=== PATIENT | female | born 1935 | race Caucasian/White ===

== ENCOUNTER → 2016-07-10 | Outpatient (CLI) | payer OTHER ==
[~2016-07-10] MED LIST: ALBUTEROL SULF 2.5 MG/0.5ML(0.5%) NEB SOLN ONE; DIGO0.1262; DIGO0.1262 OR; FURO20TA; FURO20TA3 OR; GLYB5TAB8; GLYB5TAB8 OR; HYDRCRY2; METF-312; METF-316 OR; NITR0.4S31 SL; NITROSTAT; NOR5T PO; SIMV10TA84; SIMV10TA84 OR; SITA100T7; SITA25TA3 OR; WARF1TAB; WARF5TAB71 OR
== END | disposition home or self-care (01) ==
LOC: RT 08:55
PROVIDERS: ATTEND Internal Medicine Pulmonary Disease
DX: J84.9 Interstitial pulmonary disease, unspecified (principal); I07.1 Rheumatic tricuspid insufficiency; I65.29 Occlusion and stenosis of unspecified carotid artery; I34.2 Nonrheumatic mitral (valve) stenosis; I35.0 Nonrheumatic aortic (valve) stenosis
CPT/HCPCS: 94060; 94620

== ENCOUNTER → 2016-08-30 | Outpatient (CLI) | payer OTHER ==
[~2016-08-30] MED LIST changes: -ALBUTEROL SULF 2.5 MG/0.5ML(0.5%) NEB SOLN ONE
[2016-08-30 10:14] LABS: Basophils # (auto) 0.1 uL; Basophils % (auto) 1.2 % (0.0-2.0); Eosinophils # (auto) 0.2 uL; Eosinophils % (auto) 2.7 % (0.0-7.0); Hematocrit 40.1 % (36.0-46.0); Hemoglobin 13.1 g/dL (12.2-16.2); Lymphocytes # (auto) 1.5 uL; Lymphocytes % (auto) 21.8 % (10.0-50.0); Mean Corpuscular Hemoglobin 27.5 pg (28.0-32.0); Mean Corpuscular Hgb Conc. 32.5 g/dL (32.0-36.0); Mean Corpuscular Volume 84.3 fL (80.0-100.0); Mean Platelet Volume 8.5 fL (7.4-10.4); Monocytes # (auto) 0.6 uL; Monocytes % (auto) 8.6 % (0.0-12.0); Neutrophils # (auto) 4.5 uL; Neutrophils % (auto) 65.7 % (37.0-80.0); Platelet Count (auto) 268 10^3/uL (140-450); Red Cell Distribution Width 15.2 % (11.6-16.0); White Blood Cell 6.8 10^3/uL (4.4-10.8)
[2016-08-30 10:26] LABS: Partial Thromboplastin Time 34.9 sec (22.64-33.71)
[2016-08-30 10:47] LABS: Albumin 3.5 g/dL (3.4-5.0); BUN/Creatinine Ratio 24.7; Bilirubin, Total 0.6 mg/dL (0.2-1.0); Calcium 9.2 mg/dL (8.5-10.1); Potassium 3.3 mmol/L (3.5-5.1); Total Protein 7.8 g/dL (6.4-8.2)
[2016-08-30 11:15] LABS: INR 2.01 (0.9-1.15); Prothrombin Time 21.7 sec (9.37-12.3)
== END | disposition home or self-care (01) ==
LOC: LAB 09:05
PROVIDERS: ATTEND Internal Medicine
DX: E11.40 Type 2 diabetes mellitus with diabetic neuropathy, unspecified (principal); I10 Essential (primary) hypertension
CPT/HCPCS: 36415; 80053; 80061; 82607; 83036; 84439; 84443; 85025; 85610; 85652; 85730

== ENCOUNTER → 2016-09-13 | Outpatient (CLI) | payer OTHER ==
[2016-09-13 11:09] LABS: Basophils # (auto) 0.1 uL; Basophils % (auto) 0.7 % (0.0-2.0); Eosinophils # (auto) 0.2 uL; Eosinophils % (auto) 2.3 % (0.0-7.0); Hematocrit 39.8 % (36.0-46.0); Lymphocytes # (auto) 1.5 uL; Mean Corpuscular Hemoglobin 27.3 pg (28.0-32.0); Mean Corpuscular Hgb Conc. 32.7 g/dL (32.0-36.0); Mean Corpuscular Volume 83.6 fL (80.0-100.0); Mean Platelet Volume 8.6 fL (7.4-10.4); Monocytes # (auto) 0.6 uL; Monocytes % (auto) 8.3 % (0.0-12.0); Neutrophils # (auto) 5.3 uL; Neutrophils % (auto) 68.7 % (37.0-80.0); Platelet Count (auto) 232 10^3/uL (140-450); White Blood Cell 7.7 10^3/uL (4.4-10.8)
[2016-09-13 11:34] LABS: Albumin 3.7 g/dL (3.4-5.0); BUN/Creatinine Ratio 26.6; Bilirubin, Total 0.6 mg/dL (0.2-1.0); Calcium 9.3 mg/dL (8.5-10.1); Potassium 3.4 mmol/L (3.5-5.1); Total Protein 7.8 g/dL (6.4-8.2)
== END | disposition home or self-care (01) ==
LOC: LAB 10:40
PROVIDERS: ATTEND Internal Medicine
DX: R53.83 Other fatigue (principal); K74.69 Other cirrhosis of liver
CPT/HCPCS: 36415; 80053; 82140; 85025

== ENCOUNTER → 2017-04-24 | Outpatient (CLI) | payer OTHER ==
[~2017-04-24] MED LIST changes: +HYDR-4683 PO; -METF-312; -METF-316 OR; +METF-370; +METF-372 OR; -NOR5T PO
[2017-04-24 09:18] LABS: Basophils # (auto) 0.2 uL; Basophils % (auto) 2.6 % (0.0-2.0); Eosinophils # (auto) 0.2 uL; Hematocrit 35.6 % (36.0-46.0); Hemoglobin 11.5 g/dL (12.2-16.2); Lymphocytes # (auto) 1.2 uL; Lymphocytes % (auto) 17.1 % (10.0-50.0); Mean Corpuscular Hemoglobin 27.5 pg (28.0-32.0); Mean Corpuscular Hgb Conc. 32.3 g/dL (32.0-36.0); Mean Platelet Volume 7.8 fL (6.9-10.8); Monocytes # (auto) 0.6 uL; Monocytes % (auto) 8.6 % (0.0-12.0); Neutrophils % (auto) 68.7 % (37.0-80.0); Platelet Count (auto) 221 10^3/uL (140-450); Red Cell Distribution Width 15.1 % (11.8-14.3); White Blood Cell 7.2 10^3/uL (4.4-10.8)
[2017-04-24 09:44] LABS: Albumin 3.6 g/dL (3.4-5.0); BUN/Creatinine Ratio 23.9; Bilirubin, Total 0.4 mg/dL (0.2-1.0); Calcium 8.6 mg/dL (8.5-10.1); Potassium 3.4 mmol/L (3.5-5.1); Total Protein 7.5 g/dL (6.4-8.2)
== END | disposition home or self-care (01) ==
LOC: LAB 08:54
PROVIDERS: ATTEND Internal Medicine
DX: I10 Essential (primary) hypertension (principal); E11.9 Type 2 diabetes mellitus without complications; K21.9 Gastro-esophageal reflux disease without esophagitis
CPT/HCPCS: 36415; 80053; 83036; 84439; 84443; 85025; 85652

== ENCOUNTER → 2017-06-28 | Outpatient (CLI) | payer OTHER ==
[2017-06-28 14:54] LABS: Basophils # (auto) 0.1 uL; Basophils % (auto) 1.3 % (0.0-2.0); Eosinophils # (auto) 0.2 uL; Nucleated Red Blood Cells % 0.1 %; Red Blood Cells 4.49 10^6/uL (4.0-5.20)
[2017-06-28 14:55] LABS: Eosinophils % (auto) 1.8 % (0.0-7.0); Hematocrit 34.6 % (36.0-46.0); Lymphocytes # (auto) 1.1 uL; Lymphocytes % (auto) 11.8 % (10.0-50.0); Mean Corpuscular Hemoglobin 24.4 pg (28.0-32.0); Mean Corpuscular Hgb Conc. 31.7 g/dL (32.0-36.0); Mean Corpuscular Volume 77.1 fL (80.0-100.0); Monocytes # (auto) 0.9 uL; Monocytes % (auto) 9.7 % (0.0-12.0); Neutrophils # (auto) 7.3 uL; Neutrophils % (auto) 75.4 % (37.0-80.0); Platelet Count (auto) 273 10^3/uL (140-450); Red Cell Distribution Width 16.1 % (11.8-14.3); White Blood Cell 9.7 10^3/uL (4.4-10.8)
[2017-06-28 15:07] LABS: INR 2.27 (0.9-1.15); Partial Thromboplastin Time 38.8 sec (22.64-33.71); Prothrombin Time 24.9 sec (9.37-12.3)
[2017-06-28 15:28] LABS: Albumin 3.3 g/dL (3.4-5.0); BUN/Creatinine Ratio 19.1; Bilirubin, Total 0.9 mg/dL (0.2-1.0); Calcium 9.1 mg/dL (8.5-10.1); Potassium 3.6 mmol/L (3.5-5.1); Total Protein 7.9 g/dL (6.4-8.2)
== END | disposition home or self-care (01) ==
LOC: LAB 14:27
PROVIDERS: ATTEND Internal Medicine
DX: J40 Bronchitis, not specified as acute or chronic (principal)
CPT/HCPCS: 36415; 80053; 85025; 85610; 85730; 87804

== ENCOUNTER → 2017-07-26 | Outpatient (CLI) | payer OTHER ==
[2017-07-26 10:26] LABS: Albumin 3.5 g/dL (3.4-5.0); Bilirubin, Direct 0.5 mg/dL (0-0.2); Bilirubin, Total 1.1 mg/dL (0.2-1.0); Total Protein 7.5 g/dL (6.4-8.2)
== END | disposition home or self-care (01) ==
LOC: LAB 09:41
PROVIDERS: ATTEND Internal Medicine Gastroenterology
DX: K76.9 Liver disease, unspecified (principal)
CPT/HCPCS: 36415; 80076

== ENCOUNTER → 2017-08-17 | Outpatient (CLI) | payer OTHER ==
[2017-08-17 09:14] LABS: Basophils # (auto) 0.1 uL; Basophils % (auto) 1.2 % (0.0-2.0); Eosinophils # (auto) 0.3 uL; Eosinophils % (auto) 3.4 % (0.0-7.0); Hematocrit 37.4 % (36.0-46.0); Hemoglobin 11.6 g/dL (12.2-16.2); Lymphocytes # (auto) 1.4 uL; Lymphocytes % (auto) 17.9 % (10.0-50.0); Mean Corpuscular Hemoglobin 23.6 pg (28.0-32.0); Mean Corpuscular Hgb Conc. 31.1 g/dL (32.0-36.0); Mean Corpuscular Volume 75.9 fL (80.0-100.0); Monocytes # (auto) 0.7 uL; Neutrophils # (auto) 5.3 uL; Neutrophils % (auto) 68.5 % (37.0-80.0); Platelet Count (auto) 227 10^3/uL (140-450); Red Blood Cells 4.93 10^6/uL (4.0-5.20); White Blood Cell 7.7 10^3/uL (4.4-10.8)
[2017-08-17 09:16] LABS: Red Cell Distribution Width 20.5 % (11.8-14.3)
[2017-08-17 09:39] LABS: Free T4 (Free Thyroxine) 1.11 ng/dL (0.89-1.76)
[2017-08-17 09:48] LABS: Potassium 3.4 mmol/L (3.5-5.1)
== END | disposition home or self-care (01) ==
LOC: LAB 08:30
PROVIDERS: ATTEND Internal Medicine
DX: E11.9 Type 2 diabetes mellitus without complications (principal); I10 Essential (primary) hypertension; E03.9 Hypothyroidism, unspecified
CPT/HCPCS: 36415; 80061; 82607; 83036; 84132; 84439; 84443; 85025

== ENCOUNTER → 2017-12-25 | Outpatient (CLI) | payer OTHER | END | disposition home or self-care (01) | LOC: LAB 11:00 | PROVIDERS: ATTEND Physician Assistant | DX: L57.0 Actinic keratosis (principal); I11.0 Hypertensive heart disease with heart failure; I50.9 Heart failure, unspecified; E11.9 Type 2 diabetes mellitus without complications; E03.9 Hypothyroidism, unspecified; Z87.891 Personal history of nicotine dependence ==

== ENCOUNTER → 2018-01-02 | Outpatient (CLI) | payer OTHER | END | disposition home or self-care (01) | LOC: XYW 09:14 | PROVIDERS: ATTEND Internal Medicine | DX: I08.1 Rheumatic disorders of both mitral and tricuspid valves (principal); I27.20 Pulmonary hypertension, unspecified | CPT/HCPCS: 93306 ==

== ENCOUNTER → 2018-02-12 | Outpatient (CLI) | payer OTHER ==
[2018-02-12 12:37] LABS: Albumin 3.3 g/dL (3.4-5.0); Bilirubin, Direct 0.3 mg/dL (0-0.2); Bilirubin, Total 0.9 mg/dL (0.2-1.0); Total Protein 7.1 g/dL (6.4-8.2)
== END | disposition home or self-care (01) ==
LOC: LAB 10:01
PROVIDERS: ATTEND Internal Medicine Gastroenterology
DX: K76.9 Liver disease, unspecified (principal)
CPT/HCPCS: 36415; 80076

== ENCOUNTER → 2018-02-15 | Outpatient (CLI) | payer OTHER ==
[2018-02-15 13:20] LABS: Albumin 3.4 g/dL (3.4-5.0); BUN/Creatinine Ratio 16.8; Calcium 8.4 mg/dL (8.5-10.1); Magnesium 1.9 mg/dL (1.6-2.6); Potassium 3.3 mmol/L (3.5-5.1)
[2018-02-15 13:51] LABS: Bilirubin, Total 0.7 mg/dL (0.2-1.0); Total Protein 7.4 g/dL (6.4-8.2)
== END | disposition home or self-care (01) ==
LOC: LAB 11:57
PROVIDERS: ATTEND Internal Medicine
DX: E11.9 Type 2 diabetes mellitus without complications (principal); R25.2 Cramp and spasm
CPT/HCPCS: 36415; 80053; 83036; 83735

== ENCOUNTER → 2018-06-14 | Outpatient (CLI) | payer OTHER ==
[2018-06-14 13:13] LABS: Potassium 3.1 mmol/L (3.5-5.1)
[2018-06-14 13:30] LABS: Albumin 3.5 g/dL (3.4-5.0); BUN/Creatinine Ratio 19.2; Bilirubin, Total 0.9 mg/dL (0.2-1.0); Calcium 8.8 mg/dL (8.5-10.1); Total Protein 7.2 g/dL (6.4-8.2)
== END | disposition home or self-care (01) ==
LOC: LAB 10:06
PROVIDERS: ATTEND Internal Medicine
DX: E11.22 Type 2 diabetes mellitus with diabetic chronic kidney disease (principal); N18.3 Chronic kidney disease, stage 3 (moderate)
CPT/HCPCS: 36415; 80053; 83036; 84439; 84443

== ENCOUNTER → 2018-07-24 | Outpatient (CLI) | payer OTHER ==
[2018-07-24 12:05] LABS: BUN/Creatinine Ratio 17.7; Bilirubin, Total 0.8 mg/dL (0.2-1.0); Calcium 8.4 mg/dL (8.5-10.1)
== END | disposition home or self-care (01) ==
LOC: LAB 10:30
PROVIDERS: ATTEND Internal Medicine
DX: I13.0 Hypertensive heart and chronic kidney disease with heart failure and stage 1 through stage 4 chronic kidney disease, or unspecified chronic kidney disease (principal); E11.22 Type 2 diabetes mellitus with diabetic chronic kidney disease; I50.9 Heart failure, unspecified; N18.3 Chronic kidney disease, stage 3 (moderate)
CPT/HCPCS: 36415; 80053; 83880

== ENCOUNTER → 2018-07-30 | Outpatient (CLI) | payer OTHER ==
[2018-07-30 12:39] LABS: Eosinophils # (auto) 0.2 uL; Eosinophils % (auto) 2.6 % (0.0-7.0); Hemoglobin 8.9 g/dL (12.2-16.2); Lymphocytes # (auto) 1.3 uL; Monocytes # (auto) 0.8 uL; Nucleated Red Blood Cells % 0.1 %
[2018-07-30 12:42] LABS: Basophils # (auto) 0.2 uL; Basophils % (auto) 2.4 % (0.0-2.0); Hematocrit 28.7 % (36.0-46.0); Lymphocytes % (auto) 19.7 % (10.0-50.0); Mean Corpuscular Hemoglobin 20.3 pg (28.0-32.0); Mean Corpuscular Hgb Conc. 30.9 g/dL (32.0-36.0); Mean Corpuscular Volume 65.9 fL (80.0-100.0); Neutrophils % (auto) 62.3 % (37.0-80.0); Platelet Count (auto) 299 10^3/uL (140-450); Red Blood Cells 4.36 10^6/uL (4.0-5.20); Red Cell Distribution Width 18.6 % (11.8-14.3); White Blood Cell 6.3 10^3/uL (4.4-10.8)
[2018-07-30 12:44] LABS: Albumin 3.4 g/dL (3.4-5.0); Calcium 9.3 mg/dL (8.5-10.1); Potassium 3.3 mmol/L (3.5-5.1)
[2018-07-30 12:48] LABS: Bilirubin, Total 1.3 mg/dL (0.2-1.0); Total Protein 7.5 g/dL (6.4-8.2)
== END | disposition home or self-care (01) ==
LOC: LAB 11:49
PROVIDERS: ATTEND Internal Medicine
DX: R53.83 Other fatigue (principal); I11.0 Hypertensive heart disease with heart failure; I50.32 Chronic diastolic (congestive) heart failure; E11.9 Type 2 diabetes mellitus without complications
CPT/HCPCS: 36415; 80053; 85025; 87086

== ENCOUNTER → 2018-08-02 | Outpatient (CLI) | payer OTHER ==
[2018-08-02 12:20] LABS: INR 2.23 (0.9-1.15); Prothrombin Time 22.8 sec (9.27-12.13)
[2018-08-02 12:32] LABS: Eosinophils # (auto) 0.2 uL; Hemoglobin 9.1 g/dL (12.2-16.2); Monocytes # (auto) 0.7 uL; Neutrophils # (auto) 4.2 uL; Nucleated Red Blood Cells % 0.1 %; Red Cell Distribution Width 19.1 % (11.8-14.3)
[2018-08-02 12:34] LABS: Basophils # (auto) 0.1 uL; Basophils % (auto) 2.4 % (0.0-2.0); Eosinophils % (auto) 2.6 % (0.0-7.0); Hematocrit 30.5 % (36.0-46.0); Lymphocytes % (auto) 15.7 % (10.0-50.0); Mean Corpuscular Hemoglobin 19.7 pg (28.0-32.0); Mean Corpuscular Hgb Conc. 29.9 g/dL (32.0-36.0); Mean Corpuscular Volume 65.8 fL (80.0-100.0); Monocytes % (auto) 11.4 % (0.0-12.0); Neutrophils % (auto) 67.9 % (37.0-80.0); Platelet Count (auto) 296 10^3/uL (140-450); Red Blood Cells 4.63 10^6/uL (4.0-5.20); White Blood Cell 6.2 10^3/uL (4.4-10.8)
[2018-08-02 12:45] LABS: Albumin 3.3 g/dL (3.4-5.0); Calcium 8.5 mg/dL (8.5-10.1); Magnesium 1.6 mg/dL (1.6-2.6)
[2018-08-02 12:49] LABS: Bilirubin, Total 1.1 mg/dL (0.2-1.0); Total Protein 7.3 g/dL (6.4-8.2)
[2018-08-02 12:58] LABS: BUN/Creatinine Ratio 16.1
[2018-08-02 14:03] LABS: Potassium 2.9 mmol/L (3.5-5.1)
== END | disposition home or self-care (01) ==
LOC: LAB 11:47
PROVIDERS: ATTEND Internal Medicine
DX: D64.9 Anemia, unspecified (principal); E87.6 Hypokalemia; I13.0 Hypertensive heart and chronic kidney disease with heart failure and stage 1 through stage 4 chronic kidney disease, or unspecified chronic kidney disease; E11.22 Type 2 diabetes mellitus with diabetic chronic kidney disease; N18.3 Chronic kidney disease, stage 3 (moderate); I50.32 Chronic diastolic (congestive) heart failure
CPT/HCPCS: 36415; 80053; 82607; 83540; 83615; 83735; 83880; 85025; 85610

== ENCOUNTER → 2018-08-16 | Outpatient (CLI) | payer OTHER ==
[~2018-08-16] MED LIST changes: +ACET-1156 PO; +ASPI81TA27 PO; +FURO40TA4 PO; +GABA100C9 PO; +GLIP-116 PO; +LEVO25TA6 PO; +METO-75 PO; +POTA10TA51 PO; +SIMV10TA84 PO
[2018-08-16 15:27] LABS: Eosinophils # (auto) 0.2 uL; Hemoglobin 8.7 g/dL (12.2-16.2); Mean Corpuscular Volume 65.1 fL (80.0-100.0)
[2018-08-16 15:30] LABS: Basophils # (auto) 0.1 uL; Eosinophils % (auto) 2.6 % (0.0-7.0); Hematocrit 29.1 % (36.0-46.0); Lymphocytes # (auto) 1.1 uL; Lymphocytes % (auto) 17.2 % (10.0-50.0); Mean Corpuscular Hemoglobin 19.5 pg (28.0-32.0); Monocytes # (auto) 0.8 uL; Monocytes % (auto) 11.8 % (0.0-12.0); Neutrophils # (auto) 4.3 uL; Neutrophils % (auto) 66.4 % (37.0-80.0); Nucleated Red Blood Cells % 0.1 %; Platelet Count (auto) 312 10^3/uL (140-450); Red Blood Cells 4.47 10^6/uL (4.0-5.20); Red Cell Distribution Width 19.7 % (11.8-14.3); White Blood Cell 6.4 10^3/uL (4.4-10.8)
[2018-08-16 15:34] LABS: Albumin 3.2 g/dL (3.4-5.0); BUN/Creatinine Ratio 17.6; Calcium 8.8 mg/dL (8.5-10.1); Potassium 3.5 mmol/L (3.5-5.1)
[2018-08-16 15:36] LABS: Bilirubin, Total 1.7 mg/dL (0.2-1.0); Total Protein 7.3 g/dL (6.4-8.2)
== END | disposition home or self-care (01) ==
LOC: LAB 15:04
PROVIDERS: ATTEND Internal Medicine
DX: D64.9 Anemia, unspecified (principal); E11.9 Type 2 diabetes mellitus without complications; I11.0 Hypertensive heart disease with heart failure; I50.9 Heart failure, unspecified
CPT/HCPCS: 36415; 80053; 83880; 85025

== ENCOUNTER → 2018-09-02 | Outpatient (CLI) | payer OTHER ==
[~2018-09-02] MED LIST changes: -DIGO0.1262; -DIGO0.1262 OR; -FURO20TA; -FURO20TA3 OR; -GLYB5TAB8; -GLYB5TAB8 OR; -HYDR-4683 PO; -HYDRCRY2; -METF-370; -METF-372 OR; -NITR0.4S31 SL; -NITROSTAT; -SIMV10TA84; -SIMV10TA84 OR; -SITA100T7; -SITA25TA3 OR; -WARF1TAB; -WARF5TAB71 OR
[2018-09-02 09:20] LABS: Basophils # (auto) 0.2 uL; Basophils % (auto) 3.3 % (0.0-2.0); Eosinophils # (auto) 0.2 uL; Eosinophils % (auto) 2.9 % (0.0-7.0); Hematocrit 32.2 % (36.0-46.0); Hemoglobin 9.8 g/dL (12.2-16.2); Lymphocytes # (auto) 1.1 uL; Lymphocytes % (auto) 18.2 % (10.0-50.0); Mean Corpuscular Hemoglobin 19.4 pg (28.0-32.0); Mean Corpuscular Hgb Conc. 30.4 g/dL (32.0-36.0); Mean Corpuscular Volume 63.8 fL (80.0-100.0); Monocytes # (auto) 0.7 uL; Monocytes % (auto) 11.3 % (0.0-12.0); Neutrophils # (auto) 3.8 uL; Neutrophils % (auto) 64.3 % (37.0-80.0); Nucleated Red Blood Cells % 0.1 %; Platelet Count (auto) 360 10^3/uL (140-450); Red Blood Cells 5.04 10^6/uL (4.0-5.20)
[2018-09-02 09:21] LABS: Red Cell Distribution Width 20.9 % (11.8-14.3)
[2018-09-02 09:34] LABS: Albumin 3.2 g/dL (3.4-5.0); Calcium 8.9 mg/dL (8.5-10.1)
[2018-09-02 09:36] LABS: INR 1.23 (0.9-1.15)
[2018-09-02 09:40] LABS: BUN/Creatinine Ratio 18.4; Bilirubin, Total 1.4 mg/dL (0.2-1.0); Total Protein 7.8 g/dL (6.4-8.2)
[2018-09-02 09:48] LABS: Potassium 2.8 mmol/L (3.5-5.1)
== END | disposition home or self-care (01) ==
LOC: LAB 08:49
PROVIDERS: ATTEND Internal Medicine
DX: D64.9 Anemia, unspecified (principal); I50.9 Heart failure, unspecified; I11.0 Hypertensive heart disease with heart failure; I48.91 Unspecified atrial fibrillation
CPT/HCPCS: 36415; 80053; 82270; 83010; 83880; 85025; 85045; 85610

== ENCOUNTER → 2018-10-21 | Outpatient (CLI) | payer OTHER ==
[2018-10-21 09:11] LABS: Basophils # (auto) 0.1 uL; Eosinophils # (auto) 0.1 uL; Hemoglobin 11.9 g/dL (12.2-16.2)
[2018-10-21 09:12] LABS: Basophils % (auto) 1.5 % (0.0-2.0); Eosinophils % (auto) 2.7 % (0.0-7.0); Hematocrit 37.3 % (36.0-46.0); Lymphocytes % (auto) 17.9 % (10.0-50.0); Mean Corpuscular Hemoglobin 26.2 pg (28.0-32.0); Mean Corpuscular Volume 82.1 fL (80.0-100.0); Monocytes # (auto) 0.5 uL; Monocytes % (auto) 10.3 % (0.0-12.0); Neutrophils # (auto) 3.6 uL; Neutrophils % (auto) 67.6 % (37.0-80.0); Nucleated Red Blood Cells % 0.1 %; Platelet Count (auto) 171 10^3/uL (140-450); Red Blood Cells 4.55 10^6/uL (4.0-5.20); White Blood Cell 5.3 10^3/uL (4.4-10.8)
[2018-10-21 09:33] LABS: INR 1.06 (0.9-1.15)
[2018-10-21 10:11] LABS: Red Cell Distribution Width 28.9 % (11.8-14.3)
[2018-10-21 11:05] LABS: Potassium 4.2 mmol/L (3.5-5.1)
[2018-10-21 11:10] LABS: Albumin 3.4 g/dL (3.4-5.0); Bilirubin, Total 0.7 mg/dL (0.2-1.0); Calcium 9.5 mg/dL (8.5-10.1); Magnesium 2.2 mg/dL (1.6-2.6); Total Protein 7.4 g/dL (6.4-8.2)
== END | disposition home or self-care (01) ==
LOC: LAB 08:49
PROVIDERS: ATTEND Internal Medicine
DX: D64.9 Anemia, unspecified (principal); E78.6 Lipoprotein deficiency; K75.81 Nonalcoholic steatohepatitis (NASH)
CPT/HCPCS: 36415; 80053; 83735; 85025; 85610

== ENCOUNTER → 2018-11-14 | Outpatient (CLI) | payer OTHER | END | disposition home or self-care (01) | LOC: XYW 10:53 | PROVIDERS: ATTEND Internal Medicine | DX: I07.1 Rheumatic tricuspid insufficiency (principal); I20.9 Angina pectoris, unspecified; I48.91 Unspecified atrial fibrillation; I31.3 Pericardial effusion (noninflammatory) | CPT/HCPCS: 93306 ==

== ENCOUNTER → 2018-12-05 | Outpatient (CLI) | payer OTHER ==
[~2018-12-05] VITALS: Ht 152.4 cm; Wt 82.1 kg
[~2018-12-05] MED LIST changes: +ADENOSINE 69 MG in GIVE UN-DILUTED 0 ML IV STA; +ASPI-404 PO; -ASPI81TA27 PO; -GLIP-116 PO; +GLIP10TA9 PO
== END | disposition home or self-care (01) ==
LOC: XY 08:23
PROVIDERS: ATTEND Internal Medicine
DX: R41.82 Altered mental status, unspecified (principal); I10 Essential (primary) hypertension; I20.9 Angina pectoris, unspecified; E03.9 Hypothyroidism, unspecified; E11.9 Type 2 diabetes mellitus without complications; E78.5 Hyperlipidemia, unspecified; R42 Dizziness and giddiness
CPT/HCPCS: 78452; 93017; 93886; A9500; J0153

== ENCOUNTER → 2019-01-02 | Outpatient (CLI) | payer OTHER ==
[~2019-01-02] MED LIST changes: -ADENOSINE 69 MG in GIVE UN-DILUTED 0 ML IV STA; +GLIP5TAB12 PO
[2019-01-02 15:01] LABS: Basophils # (auto) 0.1 uL; Eosinophils # (auto) 0.1 uL; Lymphocytes # (auto) 1.1 uL; Neutrophils # (auto) 3.5 uL; Red Cell Distribution Width 15.7 % (11.8-14.3)
[2019-01-02 15:03] LABS: Basophils % (auto) 1.9 % (0.0-2.0); Eosinophils % (auto) 2.6 % (0.0-7.0); Hematocrit 37.2 % (36.0-46.0); Hemoglobin 12.3 g/dL (12.2-16.2); Lymphocytes % (auto) 20.5 % (10.0-50.0); Mean Corpuscular Hemoglobin 26.7 pg (28.0-32.0); Mean Corpuscular Volume 80.8 fL (80.0-100.0); Monocytes # (auto) 0.6 uL; Monocytes % (auto) 10.7 % (0.0-12.0); Neutrophils % (auto) 64.3 % (37.0-80.0); Nucleated Red Blood Cells % 0.1 %; Platelet Count (auto) 221 10^3/uL (140-450); Red Blood Cells 4.61 10^6/uL (4.0-5.20); White Blood Cell 5.5 10^3/uL (4.4-10.8)
[2019-01-02 15:06] LABS: Urine Bacteria NONE SEEN /hpf (None Seen); Urine Blood Negative /uL (Negative); Urine Specific Gravity 1.024 (1.001-1.035); Urine WBC 3 /hpf (0 - 5)
[2019-01-02 15:41] LABS: Potassium 3.4 mmol/L (3.5-5.1)
[2019-01-02 15:57] LABS: Albumin 3.1 g/dL (3.4-5.0); BUN/Creatinine Ratio 24.1; Bilirubin, Total 1.6 mg/dL (0.2-1.0); Calcium 9.2 mg/dL (8.5-10.1); Total Protein 7.6 g/dL (6.4-8.2); Uric Acid 12.8 mg/dL (2.6-6.0)
== END | disposition home or self-care (01) ==
LOC: LAB 14:28
PROVIDERS: ATTEND Internal Medicine
DX: E11.21 Type 2 diabetes mellitus with diabetic nephropathy (principal); I11.0 Hypertensive heart disease with heart failure; I50.9 Heart failure, unspecified
CPT/HCPCS: 36415; 80053; 80061; 81001; 82043; 83036; 83880; 83970; 84439; 84443; 84550; 85025; 85652

== ENCOUNTER 2019-01-03 17:29 | Inpatient (IN) | payer OTHER ==
[~2019-01-03] VITALS: Ht 157.5 cm; Wt 80.0 kg
[~2019-01-03 17:29] MED LIST changes: -GLIP5TAB12 PO
[2019-01-03] MEDS ORDERED: MORPHINE SULF INJ 2 MG/ML SYRINGE 1ML IV PRN (18:45)
[2019-01-03] MEDS ORDERED: VANCOMYCIN PER PHARMACY 1,000 MG IV SCH (18:45)
[2019-01-03] MEDS ORDERED: FUROSEMIDE 20 MG/2 ML VIAL IV ONE (19:00)
[2019-01-03] MEDS ORDERED: ONDANSETRON HCL 4 MG/2 ML VIAL IV ONE (19:00)
[2019-01-03] MEDS ORDERED: VANCOMYCIN 1GM/250ML 250 ML IV ONE (19:30)
[2019-01-03 19:55] LABS: Basophils # (auto) 0.1 uL; Eosinophils # (auto) 0.1 uL; Lymphocytes # (auto) 0.9 uL; White Blood Cell 4.8 10^3/uL (4.4-10.8)
[2019-01-03 19:58] LABS: Basophils % (auto) 2.4 % (0.0-2.0); Eosinophils % (auto) 2.7 % (0.0-7.0); Hematocrit 36.4 % (36.0-46.0); Hemoglobin 11.8 g/dL (12.2-16.2); Lymphocytes % (auto) 18.5 % (10.0-50.0); Mean Corpuscular Hemoglobin 26.5 pg (28.0-32.0); Mean Corpuscular Hgb Conc. 32.3 g/dL (32.0-36.0); Mean Corpuscular Volume 81.9 fL (80.0-100.0); Monocytes # (auto) 0.6 uL; Monocytes % (auto) 13.5 % (0.0-12.0); Neutrophils % (auto) 62.9 % (37.0-80.0); Platelet Count (auto) 200 10^3/uL (140-450); Red Blood Cells 4.45 10^6/uL (4.0-5.20); Red Cell Distribution Width 15.5 % (11.8-14.3)
[2019-01-03 20:00] LABS: INR 2.71 (0.9-1.15); Partial Thromboplastin Time 40.2 sec (23.64-32.05)
[2019-01-03 20:03] LABS: Albumin 3.1 g/dL (3.4-5.0); Potassium 3.2 mmol/L (3.5-5.1)
[2019-01-03 20:06] LABS: Bilirubin, Total 1.1 mg/dL (0.2-1.0); Total Protein 7.6 g/dL (6.4-8.2)
[2019-01-03 20:21] LABS: CRP High Sensitivity 1.33 mg/dL (< 0.3)
[2019-01-03] MEDS: PIPERACILLIN-TAZOB 2.25GM 50 ML IV SCH (21:17)
[2019-01-03 21:28] LABS: Urine Bacteria NONE SEEN /hpf (None Seen); Urine Blood Negative /uL (Negative); Urine Specific Gravity 1.015 (1.001-1.035); Urine WBC 4 /hpf (0 - 5)
[2019-01-04] VITALS (8 sets, daily range): BP systolic 94–119; BP diastolic 53–79
[2019-01-04] MEDS ORDERED: FUROSEMIDE 20 MG/2 ML VIAL IV ONE (02:15)
[2019-01-04] MEDS ORDERED: ACETAMINOPHEN 325 MG TAB PO PRN (02:45)
[2019-01-04] MEDS ORDERED: NITROGLYCERIN 0.4 MG SL TAB SL PRN (02:45)
[2019-01-04] MEDS ORDERED: ONDANSETRON HCL 4 MG/2 ML VIAL IV PRN (02:45)
[2019-01-04] MEDS ORDERED: DEXTROSE (50%) 50ML SYRG IV PRN (02:45)
[2019-01-04] MEDS ORDERED: MORPHINE SULF INJ 2 MG/ML SYRINGE 1ML IV PRN (02:45)
[2019-01-04] MEDS: PIPERACILLIN-TAZOB 2.25GM 50 ML IV SCH (03:20)
--- NOTE | 2019-01-04 04:40 | NUR ---
[facility] admit from ER ISATU CESAR admitted to [facility]. Patient oriented to REYMUNDO ARTEAGA [facility], primary RN, unit, room, bed, and unit policies regarding patient care and visiting hours. Patient placed on oxygen, weighed by bedscale, and encouraged to call if they need something. All questions and concerns addressed, patient verbalized understanding. Bed in lowest locked position, call light within reach, side rails up x2, fall precautions in place. Will continue to monitor Q1hr and PRN.
[2019-01-04] MEDS ORDERED: PNEUMOCOCCAL VACC POLYS 25 MCG/0.5 ML VIAL IM ONE (05:45)
[2019-01-04] MEDS ORDERED: ALBUTEROL SULF 2.5 MG/0.5ML(0.5%) NEB SOLN NEB PRN (05:45)
[2019-01-04] MEDS: LEVOTHYROXINE SODIUM 25 MCG TAB PO SCH (06:30)
[2019-01-04] MEDS: CLINDAMYCIN 600MG IV 50 ML IV SCH ×3 (06:30→22:06)
[2019-01-04] MEDS: InsuLIN REG 1unit/0.01ml Soln (100units/ml) SC SCH ×3 (06:30→18:20)
[2019-01-04] MEDS: ACCU-CHEK COMFORT CURVE STRIP VI SCH ×3 (06:30→18:19)
[2019-01-04 06:57] LABS: BUN/Creatinine Ratio 22.6
[2019-01-04 07:17] LABS: INR 2.72 (0.9-1.15)
--- NOTE | 2019-01-04 07:41 | NUR ---
Lab call with critical potassium blood level K 2.8, will page hospitalist
[2019-01-04 07:42] LABS: Potassium 2.8 mmol/L (3.5-5.1)
--- NOTE | 2019-01-04 07:42 | NUR ---
Paged Hospitalist regarding low potassium.
--- NOTE | 2019-01-04 07:46 | NUR ---
Hospitalist Dr. Hall returned page Orders for PO potassium received, read back, and verified. Will medicate per orders.
[2019-01-04] MEDS ORDERED: POTASSIUM CHL 20 Meq TABLET PO ONE ×2 (08:00→17:30)
[2019-01-04] MEDS: HYDROcodone-ACET 5/325MG TAB PO PRN ×2 (09:27→22:07)
[2019-01-04] MEDS: cefTRIAXone 1GM/50ML D5W 50 ML IV SCH (09:28)
[2019-01-04] MEDS ORDERED: FUROSEMIDE 40 MG TAB PO SCH (10:00)
--- NOTE | 2019-01-04 10:31 | NUR ---
Respiratory note: PRN MED NEB TX NOT INDICATED AT THIS TIME. HR 77,RR 16, SPO2 97% ON 4 L NC, BS CLEAR. PT INFORMED TO HIT CALL BUTTON IF FEELING SOB OR WHEEZING.
[2019-01-04] MEDS: POTASSIUM CHL 20 Meq TABLET PO SCH (11:40)
[2019-01-04] MEDS: ALLOPURINOL 100 MG TAB PO SCH (11:41)
[2019-01-04] MEDS: METOLAZONE 5 MG TAB PO SCH (11:41)
[2019-01-04] MEDS: PANTOPRAZOLE 40 MG TAB PO SCH (11:43)
[2019-01-04] MEDS ORDERED: WARFARIN SODIUM 2.5 MG TAB PO ONE (17:00)
--- NOTE | 2019-01-04 17:00 | NUR ---
Dr. Castaneda at bedside. Orders received, read back and verified, orders for potassium, furosemide, strict I & O, and Mag level, request for wound care to place pressure wrap to bilateral lower extremities.
--- NOTE | 2019-01-04 17:05 | NUR ---
Per Dr. Castaneda remove oxygen, patient saturation 95% on room air.
[2019-01-04] MEDS: FUROSEMIDE 20 MG/2 ML VIAL IV SCH (18:19)
[2019-01-04] MEDS: ATORVASTATIN 20 MG TAB PO SCH (22:07)
[2019-01-05] MEDS: TEMAZEPAM 15 MG CAP PO PRN ×2 (00:10→23:56)
[2019-01-05 05:00] VITALS: BP 97/63
[2019-01-05 05:52] LABS: Basophils # (auto) 0.1 uL; Eosinophils # (auto) 0.1 uL; Eosinophils % (auto) 2.8 % (0.0-7.0); Hemoglobin 12.2 g/dL (12.2-16.2); Lymphocytes # (auto) 0.8 uL; Monocytes # (auto) 0.6 uL; Neutrophils # (auto) 3.1 uL; Nucleated Red Blood Cells % 0.1 %; White Blood Cell 4.7 10^3/uL (4.4-10.8)
[2019-01-05 05:57] LABS: Basophils % (auto) 1.9 % (0.0-2.0); Hematocrit 37.3 % (36.0-46.0); Lymphocytes % (auto) 17.5 % (10.0-50.0); Mean Corpuscular Hemoglobin 26.8 pg (28.0-32.0); Mean Corpuscular Hgb Conc. 32.7 g/dL (32.0-36.0); Mean Corpuscular Volume 81.7 fL (80.0-100.0); Monocytes % (auto) 12.4 % (0.0-12.0); Neutrophils % (auto) 65.4 % (37.0-80.0); Platelet Count (auto) 189 10^3/uL (140-450); Red Blood Cells 4.56 10^6/uL (4.0-5.20); Red Cell Distribution Width 15.4 % (11.8-14.3)
[2019-01-05 05:58] LABS: INR 2.8 (0.9-1.15)
[2019-01-05] MEDS: InsuLIN REG 1unit/0.01ml Soln (100units/ml) SC SCH ×5 (06:00→23:54)
[2019-01-05 06:15] LABS: Calcium 9.1 mg/dL (8.5-10.1); Potassium 3.9 mmol/L (3.5-5.1)
[2019-01-05 06:18] LABS: BUN/Creatinine Ratio 19.7
[2019-01-05] MEDS: CLINDAMYCIN 600MG IV 50 ML IV SCH ×3 (06:23→22:15)
[2019-01-05] MEDS: LEVOTHYROXINE SODIUM 25 MCG TAB PO SCH (06:24)
[2019-01-05] MEDS: ACCU-CHEK COMFORT CURVE STRIP VI SCH ×5 (06:24→23:54)
[2019-01-05] MEDS: FUROSEMIDE 20 MG/2 ML VIAL IV SCH ×2 (06:36→18:12)
[2019-01-05 08:50] VITALS: BP 93/58
--- NOTE | 2019-01-05 10:15 | NUR ---
WOUND CARE NOTE: Wound care in to see patient per wound care request regarding "pressure wrap for bilateral lower extremity swelling" Patient is 83 y/o female admitted for Lt Lower Extremity Cellulitis. Patient with history of A Fib, CHF, DM, High Lipids and hypertension. Patient is resting in bed in Rm. 277B. She's awake, alert and oriented. Patient denies any pain at this time. She's able to move, turn and reposition self. Her Delroy score is 20. Skin assessment done with the assistance of patient's nurse, NADIA Barry. No open wound noted, no pressure injury noted. Patient's BLE noted with edema and erythema, no open wounds noted. Photograph of patient's BLE are taken for reference. Patient reported that her BLE edema and erythema got worse in the last month. Cleansed patient's BLE with mild soap and water, patted dry. Applied Unna boots starting at base of toes overlapping half towards two inches below the knee, covered with Kerlix/elastic bandage. Patient tolerated well. NADIA Barry at bedside. No further wound care monitoring needed at this time. RECOMMENDATIONS: Nursing to change UNNA Boots Q3days per MD order, may elevate edematous extremities on pillows. Addendum: 01/05/19 at 1326 by Michelle Watson RN Amended: Links added.
--- NOTE | 2019-01-05 10:30 | NUR ---
Assisted with YANE boot compression wraps with wound care nurse to bilateral lower extremity per Dr. Castaneda orders, patient tolerated well.
[2019-01-05] MEDS: cefTRIAXone 1GM/50ML D5W 50 ML IV SCH (10:55)
[2019-01-05] MEDS: POTASSIUM CHL 20 Meq TABLET PO SCH (10:56)
[2019-01-05] MEDS: ALLOPURINOL 100 MG TAB PO SCH (10:56)
[2019-01-05] MEDS: PANTOPRAZOLE 40 MG TAB PO SCH (10:56)
[2019-01-05] MEDS: METOLAZONE 5 MG TAB PO SCH (10:56)
[2019-01-05 12:49] VITALS: BP 105/70
--- NOTE | 2019-01-05 14:00 | NUR ---
ASSESSED PT FOR MED NEB TX, PT ON RA WITH SPO2 94%, HR 100, RR 15 WITH CLEAR BS. NO SOB NO RESPIRATORY DISTRESS NOTED. WILL CONTINUE TO MONITOR PT.
[2019-01-05 17:00] VITALS: BP 95/62
[2019-01-05] MEDS ORDERED: WARFARIN SODIUM 2 MG TAB PO ONE (17:00)
--- NOTE | 2019-01-05 19:00 | NUR ---
Opening Shift Note Assumed care of patient, awake and alert. No S/S of distress/SOB or pain. Instructed on POC and to call for assist PRN, will continue to monitor for changes Q1hr and PRN.
--- NOTE | 2019-01-05 20:35 | NUR ---
Respiratory note: PT RECIEVED ON NC2L. PT IS AWAKE AND ALERT. PT RESPONSIVE AND STATING SHE IS NOT SOB AT THIS TIME. SPO2 95%, HR 103, RR 18. BS CLR T/O. NO PRN TX INDICATED THIS VISIT.
[2019-01-05 21:00] VITALS: BP 96/56
[2019-01-05] MEDS: ATORVASTATIN 20 MG TAB PO SCH (22:15)
[2019-01-06 04:30] VITALS: BP 90/53
[2019-01-06 05:48] LABS: INR 3.29 (0.9-1.15); Partial Thromboplastin Time 41.9 sec (23.64-32.05)
[2019-01-06] MEDS: CLINDAMYCIN 600MG IV 50 ML IV SCH ×3 (05:54→22:33)
[2019-01-06] MEDS: InsuLIN REG 1unit/0.01ml Soln (100units/ml) SC SCH ×4 (06:00→23:55)
[2019-01-06] MEDS: FUROSEMIDE 20 MG/2 ML VIAL IV SCH ×3 (06:24→13:18)
[2019-01-06] MEDS: ACCU-CHEK COMFORT CURVE STRIP VI SCH ×4 (06:25→23:55)
[2019-01-06] MEDS: LEVOTHYROXINE SODIUM 25 MCG TAB PO SCH (06:26)
--- NOTE | 2019-01-06 07:30 | NUR ---
Respiratory note: PT AWAKE AND ALERT. NO RESPIRATORY DISTRESS NOTED. SPO2 94% ON 2L NC, HR 109, RR 18, BS CLEAR T/O. PRN MEDNEB TX NOT INDICATED AT THIS TIME. PT INFORMED TO PUSH CALL BUTTON IF INCREASED WOB, SOB, OR WHEEZING OCCURS.
[2019-01-06 08:00] VITALS: BP 88/56
[2019-01-06 09:05] VITALS: BP 88/56
[2019-01-06] MEDS: cefTRIAXone 1GM/50ML D5W 50 ML IV SCH (09:31)
[2019-01-06] MEDS: METOLAZONE 5 MG TAB PO SCH (09:32)
[2019-01-06] MEDS: PANTOPRAZOLE 40 MG TAB PO SCH (09:32)
[2019-01-06] MEDS: POTASSIUM CHL 20 Meq TABLET PO SCH (09:32)
[2019-01-06] MEDS: ALLOPURINOL 100 MG TAB PO SCH (09:32)
[2019-01-06] MEDS ORDERED: GLIP5TAB12 PO (11:17)
[2019-01-06] MEDS ORDERED: METO-75 PO (11:19)
[2019-01-06 12:21] VITALS: BP 101/64
[2019-01-06] MEDS: SODIUM CHLORIDE 0.9% 1,000 ML IV SCH ×2 (12:53→17:42)
[2019-01-06 16:29] VITALS: BP 88/48
[2019-01-06 21:48] VITALS: BP 105/54
[2019-01-06] MEDS: HYDROcodone-ACET 5/325MG TAB PO PRN (21:50)
--- NOTE | 2019-01-06 22:30 | NUR ---
Respiratory note: PT SEEN AND ASSESSED FOR PRN MED NEB TX AT 2230. TX NOT INDICATED AT THIS TIME. PT STATED THAT SHE HASN'T HAD ANY ISSUES WITH HER BREATHING. BREATH SOUNDS WERE CLEAR AND DIMINISHED. HR 105 RR 18 POX 92% ON ROOM AIR. PT AWARE TO CALL FOR RT IF ANY DISTRESS OCCURS.
[2019-01-06] MEDS: ATORVASTATIN 20 MG TAB PO SCH (22:33)
[2019-01-07 05:04] VITALS: BP 82/50
[2019-01-07] MEDS: ACCU-CHEK COMFORT CURVE STRIP VI SCH ×2 (06:00→13:22)
[2019-01-07] MEDS: FUROSEMIDE 20 MG/2 ML VIAL IV SCH (06:00)
[2019-01-07] MEDS: InsuLIN REG 1unit/0.01ml Soln (100units/ml) SC SCH ×2 (06:00→13:21)
[2019-01-07] MEDS: CLINDAMYCIN 600MG IV 50 ML IV SCH ×2 (06:20→13:22)
[2019-01-07] MEDS: SODIUM CHLORIDE 0.9% 1,000 ML IV SCH ×2 (06:21→11:07)
[2019-01-07 06:23] LABS: INR 3.06 (0.9-1.15); Partial Thromboplastin Time 44.2 sec (23.64-32.05)
[2019-01-07] MEDS: LEVOTHYROXINE SODIUM 25 MCG TAB PO SCH (06:54)
--- NOTE | 2019-01-07 07:20 | NUR ---
Respiratory note: HR 90, RR 14, SPO2 92% ON RA, BS CLEAR AND DIMINISHED.PRN MED NEB TX NOT INDICATED OR WANTED AT THIS TIME. PT INFORMED TO HIT CALL BUTTON IF FEELING SOB OR WHEEZING.NO SIGNS OR SYMPTOMS OF RESPIRATOR DISTRESS NOTED.
[2019-01-07 08:00] VITALS: BP 95/62
--- NOTE | 2019-01-07 08:30 | NUR ---
PATIENT ALERT AND ORIENTED. PATIENT STILL EXPERIENCING FREQUENT DIARRHEA AND ABDOMINAL PAIN. Addendum: 01/07/19 at 0838 by CLEMENTINA SHEPARD RN WRONG PATIENT
--- NOTE | 2019-01-07 08:38 | NUR ---
PATIENT STILL EXPERIENCING LOWER LEG EDEMA
[2019-01-07 08:41] VITALS: BP 95/62
[2019-01-07 09:06] VITALS: BP 95/62
[2019-01-07] MEDS: PANTOPRAZOLE 40 MG TAB PO SCH (09:21)
[2019-01-07] MEDS: METOLAZONE 5 MG TAB PO SCH (09:21)
[2019-01-07] MEDS: POTASSIUM CHL 20 Meq TABLET PO SCH (09:21)
[2019-01-07] MEDS: ALLOPURINOL 100 MG TAB PO SCH (09:21)
[2019-01-07] MEDS: cefTRIAXone 1GM/50ML D5W 50 ML IV SCH (09:21)
[2019-01-07 12:25] VITALS: BP 96/61
[2019-01-07 12:37] VITALS: BP 95/62
--- NOTE | 2019-01-07 18:00 | NUR ---
PATIENT DISCHARGED HOME WITH FAMILY. ALL IV ACCESS DISCONTINUED. ALL DISCHARGE PAPERWORK SIGNED. ALL DISCHARGE INSTRUCTIONS GIVEN. PATIENT NON-TELEMETRY
== END 2019-01-07 18:00 | disposition home or self-care (01) | DRG 602 ==
LOC: ER 17:32 → OVERFLOW 17:33 → WEST WING 01-04 04:37
PROVIDERS: ADMIT Nurse Practitioner; ATTEND Family Medicine
DX: L03.116 Cellulitis of left lower limb (principal); I50.33 Acute on chronic diastolic (congestive) heart failure; D68.9 Coagulation defect, unspecified; I13.0 Hypertensive heart and chronic kidney disease with heart failure and stage 1 through stage 4 chronic kidney disease, or unspecified chronic kidney disease; L03.115 Cellulitis of right lower limb; E03.9 Hypothyroidism, unspecified; N18.3 Chronic kidney disease, stage 3 (moderate); E87.6 Hypokalemia; I48.91 Unspecified atrial fibrillation; E66.9 Obesity, unspecified; E78.5 Hyperlipidemia, unspecified; E11.40 Type 2 diabetes mellitus with diabetic neuropathy, unspecified; E78.00 Pure hypercholesterolemia, unspecified; J43.9 Emphysema, unspecified; K57.30 Diverticulosis of large intestine without perforation or abscess without bleeding; M47.9 Spondylosis, unspecified; I95.9 Hypotension, unspecified; E11.21 Type 2 diabetes mellitus with diabetic nephropathy; E11.22 Type 2 diabetes mellitus with diabetic chronic kidney disease; R09.02 Hypoxemia; Z90.49 Acquired absence of other specified parts of digestive tract; Z90.710 Acquired absence of both cervix and uterus; Z79.01 Long term (current) use of anticoagulants; Z82.49 Family history of ischemic heart disease and other diseases of the circulatory system; Z79.899 Other long term (current) drug therapy; I35.0 Nonrheumatic aortic (valve) stenosis; I34.2 Nonrheumatic mitral (valve) stenosis; I36.1 Nonrheumatic tricuspid (valve) insufficiency
CPT/HCPCS: 36415; 36600; 71250; 73700; 74176; 80048; 80053; 80202; 81001; 82553; 82805; 82962; 83605; 83735; 83880; 84484; 84550; 85025; 85379; 85384; 85610; 85730; 86141; 87040; 87086; 93970; 96365; 96366; 96367; 96375; 96376; G0378; J0696; J1815; J2405; J2543; J3490

== ENCOUNTER → 2019-01-17 | Outpatient (CLI) | payer OTHER ==
[~2019-01-17] MED LIST changes: -GLIP10TA9 PO; +GLIP5TAB12 PO
[2019-01-17 10:36] LABS: Magnesium 2.1 mg/dL (1.6-2.6); Potassium 3.1 mmol/L (3.5-5.1)
== END | disposition home or self-care (01) ==
LOC: LAB 09:44
PROVIDERS: ATTEND Internal Medicine
DX: I11.0 Hypertensive heart disease with heart failure (principal); I50.32 Chronic diastolic (congestive) heart failure; M25.50 Pain in unspecified joint
CPT/HCPCS: 36415; 83735; 83880; 84132; 84550

== ENCOUNTER → 2019-03-03 | Outpatient (CLI) | payer OTHER ==
[2019-03-03 11:37] LABS: Basophils # (auto) 0.1 uL; Eosinophils # (auto) 0.1 uL; Hemoglobin 11.7 g/dL (12.2-16.2); Lymphocytes # (auto) 0.7 uL; Lymphocytes % (auto) 14.8 % (10.0-50.0); Monocytes # (auto) 0.5 uL; Neutrophils # (auto) 3.4 uL; Neutrophils % (auto) 71.7 % (37.0-80.0); White Blood Cell 4.8 10^3/uL (4.4-10.8)
[2019-03-03 11:38] LABS: Basophils % (auto) 1.8 % (0.0-2.0); Eosinophils % (auto) 2.1 % (0.0-7.0); Hematocrit 35.6 % (36.0-46.0); Mean Corpuscular Hgb Conc. 32.9 g/dL (32.0-36.0); Monocytes % (auto) 9.6 % (0.0-12.0); Nucleated Red Blood Cells % 0.1 %; Platelet Count (auto) 209 10^3/uL (140-450); Red Blood Cells 4.51 10^6/uL (4.0-5.20); Red Cell Distribution Width 20.1 % (11.8-14.3)
[2019-03-03 14:29] LABS: BUN/Creatinine Ratio 18.4; Calcium 8.8 mg/dL (8.5-10.1); Potassium 3.5 mmol/L (3.5-5.1); Uric Acid 9.7 mg/dL (2.6-6.0)
== END | disposition home or self-care (01) ==
LOC: LAB 11:05
PROVIDERS: ATTEND Internal Medicine
DX: I13.0 Hypertensive heart and chronic kidney disease with heart failure and stage 1 through stage 4 chronic kidney disease, or unspecified chronic kidney disease (principal); I50.9 Heart failure, unspecified; N18.3 Chronic kidney disease, stage 3 (moderate)
CPT/HCPCS: 36415; 80048; 84550; 85025

== ENCOUNTER → 2019-04-17 | Outpatient (CLI) | payer OTHER ==
[~2019-04-17] MED LIST changes: -ASPI-404 PO; +CEPH-37 PO; +FURO1TAB31 PO; -FURO40TA4 PO; -METO-75 PO; +METO5TAB56 PO; -POTA10TA51 PO; +POTA1TAB61 PO; +SPIR50TA2 PO; +WARF5TAB PO
[2019-04-17 11:03] LABS: Calcium 8.9 mg/dL (8.5-10.1); Magnesium 1.6 mg/dL (1.6-2.6); Potassium 4.3 mmol/L (3.5-5.1)
[2019-04-17 11:05] LABS: BUN/Creatinine Ratio 13.7
== END | disposition home or self-care (01) ==
LOC: LAB 10:26
PROVIDERS: ATTEND Internal Medicine
DX: I11.0 Hypertensive heart disease with heart failure (principal); I50.9 Heart failure, unspecified
CPT/HCPCS: 36415; 80048; 83735

== ENCOUNTER → 2019-06-30 | Outpatient (CLI) | payer OTHER ==
[2019-06-30 09:09] LABS: Basophils # (auto) 0.1 uL; Eosinophils # (auto) 0.2 uL; Hemoglobin 11.6 g/dL (12.2-16.2); Monocytes # (auto) 0.7 uL; Monocytes % (auto) 14.2 % (0.0-12.0); Nucleated Red Blood Cells % 0.1 %
[2019-06-30 09:11] LABS: Basophils % (auto) 3.1 % (0.0-2.0); Eosinophils % (auto) 3.8 % (0.0-7.0); Hematocrit 35.7 % (36.0-46.0); Lymphocytes # (auto) 0.8 uL; Lymphocytes % (auto) 16.4 % (10.0-50.0); Mean Corpuscular Hemoglobin 25.2 pg (28.0-32.0); Mean Corpuscular Hgb Conc. 32.6 g/dL (32.0-36.0); Mean Corpuscular Volume 77.4 fL (80.0-100.0); Neutrophils % (auto) 62.5 % (37.0-80.0); Platelet Count (auto) 237 10^3/uL (140-450); Red Blood Cells 4.61 10^6/uL (4.0-5.20); White Blood Cell 4.8 10^3/uL (4.4-10.8)
[2019-06-30 09:21] LABS: Red Cell Distribution Width 22.4 % (11.8-14.3)
[2019-06-30 09:25] LABS: INR 3.17 (0.9-1.15)
[2019-06-30 09:32] LABS: Albumin 2.8 g/dL (3.4-5.0); Calcium 9.2 mg/dL (8.5-10.1); Potassium 3.8 mmol/L (3.5-5.1)
[2019-06-30 09:35] LABS: BUN/Creatinine Ratio 19.3; Bilirubin, Total 1.8 mg/dL (0.2-1.0); Total Protein 7.7 g/dL (6.4-8.2)
== END | disposition home or self-care (01) ==
LOC: LAB 08:28
PROVIDERS: ATTEND Internal Medicine
DX: D64.9 Anemia, unspecified (principal); R05 Cough; I50.9 Heart failure, unspecified
CPT/HCPCS: 36415; 80053; 83615; 85025; 85610; 85652; 87070; 87205

== ENCOUNTER → 2019-07-02 | Outpatient (CLI) | payer OTHER | END | disposition home or self-care (01) | LOC: XY 07:39 | PROVIDERS: ATTEND Internal Medicine | DX: M47.816 Spondylosis without myelopathy or radiculopathy, lumbar region (principal); M19.032 Primary osteoarthritis, left wrist | CPT/HCPCS: 78306; A9503 ==

== ENCOUNTER → 2019-08-26 | Outpatient (CLI) | payer OTHER ==
[2019-08-26 10:05] LABS: Basophils # (auto) 0.1 10 ^3/uL (0-0.2); Basophils % (auto) 1.4 % (0.0-2.0); Eosinophils # (auto) 0.3 10 ^3/uL (0-0.8); Eosinophils % (auto) 5.4 % (0.0-7.0); Hematocrit 35.5 % (36.0-46.0); Hemoglobin 11.6 g/dL (12.2-16.2); Lymphocytes # (auto) 0.9 10 ^3/uL (0.4-5.4); Lymphocytes % (auto) 17.4 % (10.0-50.0); Mean Corpuscular Hemoglobin 26.6 pg (28.0-32.0); Mean Corpuscular Hgb Conc. 32.6 g/dL (32.0-36.0); Mean Corpuscular Volume 81.6 fL (80.0-100.0); Monocytes # (auto) 0.6 10 ^3/uL (0-1.3); Neutrophils # (auto) 3.1 10 ^3/uL (1.6-8.6); Neutrophils % (auto) 63.8 % (37.0-80.0); Platelet Count (auto) 192 10^3/uL (140-450); Red Blood Cells 4.35 10^6/uL (4.0-5.20); Red Cell Distribution Width 19.1 % (11.8-14.3); White Blood Cell 4.9 10^3/uL (4.4-10.8)
[2019-08-26 10:26] LABS: Albumin 2.8 g/dL (3.4-5.0); Calcium 8.7 mg/dL (8.5-10.1); Potassium 3.2 mmol/L (3.5-5.1)
[2019-08-26 10:31] LABS: BUN/Creatinine Ratio 23.8; Bilirubin, Total 0.9 mg/dL (0.2-1.0); Total Protein 7.3 g/dL (6.4-8.2)
== END | disposition home or self-care (01) ==
LOC: LAB 09:35
PROVIDERS: ATTEND Internal Medicine
DX: I50.9 Heart failure, unspecified (principal); I48.91 Unspecified atrial fibrillation; E11.21 Type 2 diabetes mellitus with diabetic nephropathy
CPT/HCPCS: 36415; 80053; 83036; 84439; 84443; 85025; 85652

== ENCOUNTER → 2019-09-08 | Outpatient (CLI) | payer OTHER ==
[2019-09-08 12:10] LABS: Potassium 3.3 mmol/L (3.5-5.1)
[2019-09-08 12:19] LABS: Calcium 9.1 mg/dL (8.5-10.1); Uric Acid 10.8 mg/dL (2.6-6.0)
== END | disposition home or self-care (01) ==
LOC: LAB 10:33
PROVIDERS: ATTEND Internal Medicine
DX: I50.9 Heart failure, unspecified (principal); M10.00 Idiopathic gout, unspecified site; I48.91 Unspecified atrial fibrillation; E03.9 Hypothyroidism, unspecified; Z79.899 Other long term (current) drug therapy
CPT/HCPCS: 36415; 80048; 83735; 84550